=== PATIENT | female | born 1955 | race Caucasian/White ===

== ENCOUNTER 2016-10-01 14:05 | Emergency (ER) | payer BC ==
--- NOTE | 2016-10-01 16:41 | UC ---
Throat Pain/Nasal Diego HPI - HPI Summary HPI Summary: ST, ear aches, nasal congestion, hoarseness starting 2 days ago. "It never gets better on its own and I always need an antibiotic." Sees Dr. Carlos for recurrent sinusitis. Denies COPD. - History of Current Complaint Chief Complaint: UCRespiratory Stated Complaint: EAR PAIN,SORE THROAT,CONGESTION Time Seen by Provider: 10/01/16 16:11 Hx Obtained From: Patient Hx Last Menstrual Period: n/a ?: No Onset/Duration: Gradual Onset, Lasting Days Severity: Mild Cough: Nonproductive Associated Signs & Symptoms: Positive: Sinus Discomfort, Nasal Discharge - Allergies/Home Medications Allergies/Adverse Reactions: Allergies Allergy/AdvReac Type Severity Reaction Status Date / Time Azithromycin [From Zithromax] Allergy Rash, Verified 02/26/16 15:19 Swelling of the lips Sulfamethoxazole AdvReac Thrush Verified 02/26/16 15:19 w/Trimethoprim [From Bactrim] Home Medications: Home Medications Acetaminophen [Acetaminophen Extra Stren] 1,000 mg PO ONCE PRN 10/01/16 [ History Confirmed 10/01/16] Lisinopril & Hydrochlorothiazi [Zestoretic 20-12.5 mg-] 1 tab PO DAILY 10/01/16 [History Confirmed 10/01/16] PMH/Surg Hx/FS Hx/Imm Hx Endocrine History Of: Reports: Diabetes, Thyroid Disease - Hypothyroidism Denies: Hyperthyroidism, Hypothyroidism, Dyslipidemia Cardiovascular History Of: Reports: Hypertension Denies: Cardiac Disorders, Pacemaker/ICD, Myocardial Infarction, Congestive Heart Failure, Atrial Fibrillation, Deep Vein Thrombosis, Bleeding Disorders Respiratory History Of: Reports: Asthma Denies: COPD, Bronchitis, Pneumonia, Pulmonary Embolism GI/ History Of: Reports: Gastroesophageal Reflux Denies: Ulcer, Gastrointestinal Bleed, Gall Bladder Disease, Kidney Stones, Diverticulitis, Renal Disease, Urosepsis Neurological History Of: Denies: TIA, CVA, Dementia, Seizures, Migraine Psychological History Of: Reports: Anxiety Denies: Depression, Bipolar Disorder, Schizophrenia, Post Traumatic Stress Disorder Cancer History Of: Denies: Lung Cancer, Colorectal Cancer, Breast Cancer, Prostate Cancer, Cervical Cancer Other History Of: Negative For: HIV, Hepatitis B, Hepatitis C - Surgical History Surgical History: Yes Surgery Procedure, Year, and Place: Gastric Bypass (sleeve). L4 L5 Discectomy. 2 polyps on cervix - Family History Known Family History: Positive: Cardiac Disease, Diabetes - Social History Lives: With Family Alcohol Use: Occasionally Substance Use Type: None Smoking Status (MU): Former Smoker Type: Cigarettes Length of Time of Smoking/Using Tobacco: 30-40 yrs When Did the Patient Quit Smoking/Using Tobacco: 2008 - Immunization History Most Recent Influenza Vaccination: 06/2016 Review of Systems Constitutional: Chills Skin: Negative Eyes: Negative ENT: Ear Ache, Nasal Discharge Respiratory: Cough Cardiovascular: Negative Gastrointestinal: Negative Genitourinary: Negative Motor: Negative Neurovascular: Negative Musculoskeletal: Negative Neurological: Negative Psychological: Negative All Other Systems Reviewed And Are Negative: Yes Physical Exam Triage Information Reviewed: Yes Appearance: Well-Appearing, Obese Vital Signs: Initial Vital Signs Temp 97.9 F 10/01/16 15:39 Pulse 71 10/01/16 15:39 Resp 16 10/01/16 15:39 Pulse Ox 99 10/01/16 15:39 Vital Signs Reviewed: Yes Eye Exam: Normal Eyes: Positive: Conjunctiva Clear ENT: Positive: Hearing grossly normal, Pharynx normal, Nasal congestion, TMs normal - bubbles behind L TM. Negative: Tonsillar swelling, Tonsillar exudate Dental Exam: Normal Neck exam: Normal Neck: Positive: Supple, Nontender, No Lymphadenopathy Respiratory Exam: Normal Respiratory: Positive: Chest non-tender, Lungs clear, Normal breath sounds, No respiratory distress, No accessory muscle use Cardiovascular Exam: Normal Cardiovascular: Positive: RRR, No Murmur Musculoskeletal Exam: Normal Neurological Exam: Normal Psychological Exam: Normal Skin Exam: Normal Throat Pain/Nasal Course/Dx - Differential Dx/Diagnosis Provider Diagnoses: URI, likely viral. L serous otitis Discharge - Discharge Plan Condition: Stable Disposition: HOME Prescriptions: Benzonatate CAP* [Tessalon CAP*] 100 mg PO TID #30 cap Guaifenesin-Codeine [Guaiatussin AC] 5 - 10 ml PO Q6H #120 ml MDD 40mL Guaifenesin/Pseudo 600/60(NF) [Mucinex D 600/60 (NF)] 1 tab PO BID #20 tab Patient Education Materials: Upper Respiratory Infection (ED), Serous Otitis Media (ED) Referrals: Phong Carpio MD [Primary Care Provider] - Additional Instructions: When you were here in August, you'd had symptoms for 2-3 weeks. This is a very big difference from 3 days, as it can mean the difference between a virus that will resolve on its own and a secondary bacterial infection that needs further care. We used to think antibiotics were necessary to treat bronchitis and sinusitis, but studies have shown that respiratory viruses cause the disease in the vast majority of cases. Like head colds, most cases of bronchitis get better without antibiotics. We may prescribe antibiotics if we believe bacteria are damaging your airways, or if there's high risk the illness will worsen into pneumonia ( such as for individuals with emphysema or other lung disease). Increase your fluid intake. A cool mist humidifier may make your lungs more comfortable. An expectorant (cough medicine that loosens phlegm) can help. Recovery from respiratory viruses can be somewhat slow, but you should not have any significant worsening or new fevers. As long as you can breathe easily and you continue to have steady improvement, it is not important how many days it takes you to get better. Call or return if you develop increasing fever, shortness of breath, chest pain , bloody sputum, or otherwise worsen. If you have not improved at all after several days, contact your primary care physician or return here.
== END 2016-10-01 16:38 | disposition home or self-care (01) ==
LOC: UCCORT 14:05
DX: J06.9 Acute upper respiratory infection, unspecified (principal); H65.92 Unspecified nonsuppurative otitis media, left ear; I10 Essential (primary) hypertension; E66.9 Obesity, unspecified; Z98.84 Bariatric surgery status; Z87.891 Personal history of nicotine dependence; Z88.1 Allergy status to other antibiotic agents
CPT/HCPCS: 99212; G0463

== ENCOUNTER 2017-07-22 15:59 | Emergency (ER) | payer BC ==
[2017-07-22 16:31] VITALS: BP 139/76
--- NOTE | 2017-07-22 17:14 | UC ---
Respiratory Complaint HPI - HPI Summary HPI Summary: 62 y/o female presents to the urgent care c/o head congestion, sinus pressure and B/L ear pressure for the past 7 weeks. Pt also reports mild wheezing , SOB with exertion for the past week. Nasal discharge is green w/ mild DOMINGO. Pt reports She saw her PCP Dr Carpio 2 weeks ago and Rx Doxycycline for ear infection. She finished ABX. Chest X-ray was done on 07/13/2017, but she doesn' t know the results. Pt denies fever, chest pain, abdominal pain, N/V/D. Dr Galvez is her ENT. - History of Current Complaint Chief Complaint: UCRespiratory Stated Complaint: HEADACHE,EARS,BREATHING,JUNIOR Time Seen by Provider: 07/22/17 16:22 Hx Obtained From: Patient Hx Last Menstrual Period: n/a ?: No Onset/Duration: Gradual Onset, Lasting Weeks - 7 weeks, Still Present Timing: Intermittent Episodes Severity Initially: Mild Severity Currently: Moderate Pain Intensity: 5 - sinus pain Pain Scale Used: 0-10 Numeric Character: Cough: Nonproductive Aggravating Factors: Deep Breaths Alleviating Factors: Bronchodilator Associated Signs And Symptoms: Positive: Dyspnea, Wheezing, Nasal Congestion, Sinus Discomfort. Negative: Fever, Chills - Risk Factors Pulmonary Embolism Risk Factors: Negative Cardiac Risk Factors: Negative Pseudomonas Risk Factors: Negative Tuberculosis Risk Factors: Negative - Allergies/Home Medications Allergies/Adverse Reactions: Allergies Allergy/AdvReac Type Severity Reaction Status Date / Time Azithromycin [From Zithromax] Allergy Rash, Verified 07/22/17 16:21 Swelling of the lips Sulfamethoxazole AdvReac Thrush Verified 07/22/17 16:21 w/Trimethoprim [From Bactrim] Home Medications: Home Medications Divalproex Sprinkle CAP* [Depakote Sprinkle CAP*] 1 cap DAILY 07/22/17 [History Confirmed 07/22/17] Metformin SUSP (NF)* [Riomet SUSP (NF)*] 1 tab DAILY 07/22/17 [History Confirmed 07/22/17] Rosuvastatin Calcium [Crestor] 1 tab DAILY 07/22/17 [History Confirmed 07/22/17] PMH/Surg Hx/FS Hx/Imm Hx Previously Healthy: Yes Endocrine History: Diabetes, Dyslipidemia Cardiovascular History: Hypertension Other History Of: Negative For: HIV, Hepatitis B, Hepatitis C - Surgical History Surgical History: Yes Surgery Procedure, Year, and Place: Gastric Bypass (sleeve). L4 L5 Discectomy. 2 polyps on cervix - Family History Known Family History: Positive: Cardiac Disease, Diabetes - Social History Occupation: Unemployed Lives: With Family Alcohol Use: Occasionally Substance Use Type: None Smoking Status (MU): Former Smoker Type: Cigarettes Length of Time of Smoking/Using Tobacco: 30-40 yrs When Did the Patient Quit Smoking/Using Tobacco: 2008 - Immunization History Most Recent Influenza Vaccination: none Review of Systems Constitutional: Negative Skin: Negative Eyes: Negative ENT: Ear Ache - B/L, Nasal Discharge - green drischarge, Sinus Congestion, Sinus Pain/Tenderness Respiratory: Shortness Of Breath, Other - wheezing Cardiovascular: Negative Gastrointestinal: Negative Genitourinary: Negative Motor: Negative Neurovascular: Negative Musculoskeletal: Negative Neurological: Negative Psychological: Negative Is Patient Immunocompromised?: No All Other Systems Reviewed And Are Negative: Yes Physical Exam Triage Information Reviewed: Yes Vital Signs: Initial Vital Signs Temp 98.1 F 07/22/17 16:23 Pulse 83 07/22/17 16:23 Resp 16 07/22/17 16:23 BP 139/76 07/22/17 16:23 Pulse Ox 96 07/22/17 16:23 - Additional Comments Vitals: reviewed General: Well developed, well-nourished obese female patient sitting in the examining table w/o any apparent distress Head and face: Normocephalic and atraumatic, Positive tenderness over the frontal and maxillary sinuses.. Eyes: PERRLA, EOMI x 2. Normal conjunctiva. No eye discharge. ENT: B/L maxillary and frontal sinuses tender to percussion and palpation. Rt exteranl ear canal impacted with cerumen unable to visualize TM. LF external ear canal clear, LF TM WNL Nose: with yellowish discharge and erythematous mucosa. Pharynx with erythema, no exudate. Neck: Supple, no JVD, no carotid bruits and no lymphadenopathy. Lungs: clear, no rales, no rhonchi, no wheezes. CVS: RRR, S1 and S2 present no murmurs or gallops appreciated. Abdomen: soft nontender with positive bowel sounds. Extremities: no edema noted. Neuro: WNL. Skin: warm and dry UC Diagnostic Evaluation - Laboratory O2 Sat by Pulse Oximetry: 96 Respiratory Course/Dx - Course Course Of Treatment: 62 y/o female presents to the urgent care c/o head congestion, sinus pressure and B/L ear pressure for the past 7 weeks. Pt also reports mild wheezing , SOB with exertion for the past week. Nasal discharge is green w/ mild DOMINGO. Pt reports She saw her PCP Dr Carpio 2 weeks ago and Rx Doxycycline for ear infection. She finished ABX. Chest X-ray was done on 07/13/2017, but she doesn't know the results. Pt denies fever, chest pain, abdominal pain, N/V/D. Dr Galvez is her ENT. JHx obtained. Pt with sinusitis and RT external ER canal impacted with cerumen on examiantion. Rt ear canal irrigation ordered. Pt tolerated well procedure. Mild Cerumen still present, Pt Rx Debrox. Pt with Chronic sinusitis. Pt Rx Augmentin PO and Medrol dose jewell, F/ u with Dr Galvez if not improvement of symptoms. Pt feeling Wheezing at home. Advised to do Nebulizing albuterol treatment at home. Pt explained D/C instructions. Pt understood and agreed with plan of care. left the clinic ambulating. Pt advised to rest, eat well and avoid strenuous exercise. If symptoms do not improve or worsen advised to return to the urgent care or f/u with her PCP for further evaluation and treatment. Pt understood and agreed - Differential Dx/Diagnosis Differential Diagnosis/HQI/PQRI: Asthma, Bronchitis, Laryngitis, Sinusitis, Other - URI, cerumen impaction, Otitis media, otitis externa Provider Diagnoses: 1- Chronic sinusitis. 2-RT external ear canal impacted with cerumen. 3-Wheezing Discharge - Discharge Plan Condition: Stable Disposition: HOME Prescriptions: Amoxicillin/Clavulanate TAB* [Augmentin TAB 875*] 875 mg PO BID #20 tab Carbamide Peroxide 6.5% OTIC* [DEBROX 6.5% Otic*] 5 drop RIGHT EAR BID #1 bottle Methylprednisolone [Medrol Dosepak 4 MG*] 4 mg PO .SEE JEWELL INSTRUCTION #1 jewell Patient Education Materials: Sinusitis (ED), Cerumen Impaction (ED), Wheezing ( ED) Referrals: Fer Galvez MD [Medical Doctor] - 1 Week Phong Carpio MD [Primary Care Provider] - 1 Week Additional Instructions: 1- Please increase fluid intake and rest. take full course of antibiotic to avoid resistance 2-Use Flonase as directed to help drain fluid. Also buy saline drops to clear sinuses 3-Take Prednisone PO to alleviates wheezing and continue using the albuterol inhaler 4-Return to the clinic or PCP if symptoms do not improve for further management and treatment. Please f/u with your ENT in 1 week if not improvement or worsening of symptoms 5- Apply otic drops on RT ear as directed to soften cerumen
== END 2017-07-22 17:37 | disposition home or self-care (01) ==
LOC: UCCORT 15:59
DX: J32.9 Chronic sinusitis, unspecified (principal); H61.21 Impacted cerumen, right ear; R06.2 Wheezing; Z88.1 Allergy status to other antibiotic agents; Z88.2 Allergy status to sulfonamides; E11.9 Type 2 diabetes mellitus without complications; Z79.84 Long term (current) use of oral hypoglycemic drugs; E78.5 Hyperlipidemia, unspecified; I10 Essential (primary) hypertension; Z98.84 Bariatric surgery status; Z87.891 Personal history of nicotine dependence
CPT/HCPCS: 99213; G0463

== ENCOUNTER 2018-06-08 15:00 | Emergency (ER) | payer BC ==
[2018-06-08 16:02] VITALS: BP 133/63
--- NOTE | 2018-06-08 16:24 | UC ---
Respiratory Complaint HPI - HPI Summary HPI Summary: 3 days of sore neck and dysphagia, malaise, with increased use of albuterol, hx of asthma. Concerned about bronchitis as her granddaughter had similar sx and was dx'd with bronchitis. Diabetic, blood sugars vary, but not trending up. No fever. - History of Current Complaint Chief Complaint: UCGeneralIllness Stated Complaint: NECK/JOINT/EAR PAIN Time Seen by Provider: 06/08/18 16:13 Hx Obtained From: Patient Hx Last Menstrual Period: n/a Onset/Duration: Gradual Onset Timing: Constant Severity Initially: Moderate Severity Currently: Moderate Pain Intensity: 8 Alleviating Factors: Bronchodilator Associated Signs And Symptoms: Positive: URI - Risk Factors Pulmonary Embolism Risk Factors: Negative Cardiac Risk Factors: Diabetes Pseudomonas Risk Factors: Negative Tuberculosis Risk Factors: Negative - Allergies/Home Medications Allergies/Adverse Reactions: Allergies Allergy/AdvReac Type Severity Reaction Status Date / Time azithromycin Allergy Swelling Verified 06/08/18 15:57 Of Face,Lips,& Throat sulfamethoxazole Allergy See Comment Verified 06/08/18 15:57 [From Bactrim] trimethoprim [From Bactrim] Allergy See Comment Verified 06/08/18 15:57 Home Medications: Home Medications Diabetic Shot DAILY 06/08/18 [History] Febuxostat [Uloric] 40 mg PO DAILY 06/08/18 [History Confirmed 06/08/18] Fexofenadine (NF) [Sammi 180 (NF)] 180 mg PO DAILY 06/08/18 [History Confirmed 06/08/18] Fluticasone NASAL SPRAY 50MCG* [Flonase NASAL SPRAY 50MCG*] 2 spray BOTH NARES DAILY 06/08/18 [History Confirmed 06/08/18] Turmeric 400 mg PO DAILY 06/08/18 [History Confirmed 06/08/18] PMH/Surg Hx/FS Hx/Imm Hx Endocrine History: Diabetes, Hypothyroidism Cardiovascular History: Hypertension Respiratory History: Asthma Other History Of: Negative For: HIV, Hepatitis B, Hepatitis C - Surgical History Surgical History: Yes Surgery Procedure, Year, and Place: Gastric Bypass (sleeve). L4 L5 Discectomy. 2 polyps on cervix - Family History Known Family History: Positive: Cardiac Disease, Diabetes - Social History Occupation: Retired Alcohol Use: Occasionally Substance Use Type: None Smoking Status (MU): Former Smoker Type: Cigarettes Length of Time of Smoking/Using Tobacco: 30-40 yrs When Did the Patient Quit Smoking/Using Tobacco: 2008 - Immunization History Most Recent Influenza Vaccination: none Review of Systems Constitutional: Fatigue Skin: Negative Eyes: Negative ENT: Sore Throat, Ear Ache Respiratory: Negative Cardiovascular: Negative Gastrointestinal: Negative Genitourinary: Negative Motor: Negative Neurovascular: Negative Musculoskeletal: Myalgia - very sore neck Neurological: Negative Psychological: Negative Is Patient Immunocompromised?: No All Other Systems Reviewed And Are Negative: Yes Physical Exam Triage Information Reviewed: Yes Appearance: Pain Distress - mild to moderate, Obese Vital Signs: Initial Vital Signs Temp 97.7 F 06/08/18 15:57 Pulse 77 06/08/18 15:57 Resp 18 06/08/18 15:57 BP 133/63 06/08/18 15:57 Pulse Ox 97 06/08/18 15:57 ENT: Positive: Pharynx normal, TM dull - bilateral TM scarring, worse on the left than the right. Right ear canal narrow. NO erythema. Neck: Positive: Supple, No Lymphadenopathy, Tenderness @ - musculature tender to touch. Respiratory: Positive: Lungs clear, Normal breath sounds Cardiovascular: Positive: RRR, No Murmur Neurological: Positive: Alert, Muscle Tone Normal Psychological Exam: Normal Skin Exam: Normal UC Diagnostic Evaluation - Laboratory O2 Sat by Pulse Oximetry: 97 Respiratory Course/Dx - Course Course Of Treatment: symptomatic treatment of viral illness. - Differential Dx/Diagnosis Differential Diagnosis/HQI/PQRI: Asthma, Bronchitis, Laryngitis, Lower Resp Infection, Sinusitis Provider Diagnoses: viral illness Discharge - Sign-Out/Discharge Documenting (check all that apply): Patient Departure All imaging exams completed and their final reports reviewed: No Studies - Discharge Plan Condition: Stable Disposition: HOME Patient Education Materials: Pharyngitis (ED) Referrals: Phong Carpio MD [Primary Care Provider] - Additional Instructions: The muscle aches and soreness in the throat are consistent with viral illness, and there are no findings to suggest a bacterial cause. Continue ibuprofen for relief of pain, but also use warm packs on the neck. I would anticipate improvement in the next several days; follow up if you develop fever or cough, shortness of breath. - Billing Disposition and Condition Condition: STABLE Disposition: Home
== END 2018-06-08 16:40 | disposition home or self-care (01) ==
LOC: UCCORT 15:00
DX: B34.9 Viral infection, unspecified (principal); Z88.1 Allergy status to other antibiotic agents; Z11.9 Encounter for screening for infectious and parasitic diseases, unspecified; Z79.84 Long term (current) use of oral hypoglycemic drugs; I10 Essential (primary) hypertension; Z87.891 Personal history of nicotine dependence
CPT/HCPCS: 99212; G0463

== ENCOUNTER 2018-07-07 15:31 | Emergency (ER) | payer BC ==
[2018-07-07 17:20] VITALS: BP 141/74
--- NOTE | 2018-07-07 17:55 | ED ---
Respiratory - HPI Summary HPI Summary: 63 yo WF ex smoker p/w B/L watery eyes, redness cough and pleuritic CP x 6 weeks on and off. Started with URI sx but progressively worsened - History of Current Complaint Chief Complaint: UCGeneralIllness Stated Complaint: EYE, EAR COMPLAINT, COUGH, FATIGUE Time Seen by Provider: 07/07/18 17:29 Hx Obtained From: Patient Initial Severity: Moderate Current Severity: Moderate Pain Intensity: 5 Character: Cough (Nonproductive) Sputum Amount: Moderate Sputum Color: Yellow Aggravating Factor(s): Allergens - Allergy/Home Medications Allergies/Adverse Reactions: Allergies Allergy/AdvReac Type Severity Reaction Status Date / Time azithromycin Allergy Swelling Verified 07/07/18 17:08 Of Face,Lips,& Throat sulfamethoxazole Allergy See Comment Verified 07/07/18 17:08 [From Bactrim] trimethoprim [From Bactrim] Allergy See Comment Verified 07/07/18 17:08 PMH/Surg Hx/FS Hx/Imm Hx Previously Healthy: No - COPD Endocrine/Hematology History: Reports: Hx Diabetes, Hx Thyroid Disease - Hypothyroidism Cardiovascular History: Reports: Hx Hypertension Denies: Hx Congestive Heart Failure, Hx Deep Vein Thrombosis, Hx Myocardial Infarction, Hx Pacemaker/ICD Respiratory History: Reports: Hx Asthma Denies: Hx Chronic Obstructive Pulmonary Disease (COPD), Hx Lung Cancer, Hx Pneumonia, Hx Pulmonary Embolism GI History: Denies: Hx Gall Bladder Disease, Hx Gastrointestinal Bleed, Hx Ulcer, Hx Urosepsis History: Denies: Hx Kidney Stones, Hx Renal Disease Neurological History: Denies: Hx Dementia, Hx Migraine, Hx Seizures, Hx Transient Ischemic Attacks (TIA) Psychiatric History: Reports: Hx Anxiety Denies: Hx Depression, Hx Schizophrenia, Hx Bipolar Disorder - Surgical History Surgery Procedure, Year, and Place: Gastric Bypass (sleeve). L4 L5 Discectomy. 2 polyps on cervix Infectious Disease History: No Infectious Disease History: Reports: Hx Shingles Denies: Traveled Outside the [place] in Last 30 Days - Family History Known Family History: Positive: Cardiac Disease, Diabetes - Social History Alcohol Use: Occasionally Substance Use Type: Reports: None Smoking Status (MU): Former Smoker Type: Cigarettes Length of Time of Smoking/Using Tobacco: 30-40 yrs Review of Systems Constitutional: Negative Positive: Fever Positive: Drainage, Erythema ENT: Negative Cardiovascular: Negative Positive: Shortness Of Breath, Cough Gastrointestinal: Negative Genitourinary: Negative Musculoskeletal: Negative Skin: Negative All Other Systems Reviewed And Are Negative: Yes Physical Exam - Summary Physical Exam Summary: Vital Signs Reviewed: Yes Appearance: Positive: Well-Appearing Skin: Positive: Warm Head/Face: Positive: Normal Head/Face Inspection Eyes: Positive: B/L clear drainage with conjunctivial erythema ENT: Positive: Normal ENT inspection Neck: Positive: Supple Respiratory/Lung Sounds: Positive: FAINT Exp wheeze B/L Cardiovascular: Positive: Normal, RRR, S1, S2 Abdomen Description: Positive: Nontender, Soft Musculoskeletal: Positive: Normal Neurological: Positive: CN Intact II-XII Psychiatric: Positive: Normal Triage Information Reviewed: Yes Vital Signs On Initial Exam: Initial Vitals Temp Pulse Resp BP Pulse Ox 36.6 C 76 16 141/74 98 07/07/18 17:14 07/07/18 17:14 07/07/18 17:14 07/07/18 17:14 07/07/18 17:14 Vital Signs Reviewed: Yes Appearance: Positive: Obese Diagnostics - Vital Signs Vital Signs Temp Pulse Resp BP Pulse Ox 07/07/18 17:14 36.6 C 76 16 141/74 98 - Laboratory Lab Statement: Any lab studies that have been ordered have been reviewed, and results considered in the medical decision making process. Disposition - Course Assessment/Plan: cough with pleuritic CP-. CXR- neg for PNA, will tx for bronchitis given pt's sx. Conjunctivis- Cipro opthalmic - Diagnoses Provider Diagnoses: Bronchitis, Conjunctivitis Discharge - Sign-Out/Discharge Documenting (check all that apply): Patient Departure All imaging exams completed and their final reports reviewed: Yes - Discharge Plan Condition: Stable Disposition: HOME Prescriptions: Ciprofloxacin 0.3% OPTH.BELKYS* [Cipro 0.3% Opth*] 2 drop BOTH EYES Q4H 7 Days #1 btl DOXYcycline CAP(*) [DOXYcycline 100MG CAP(*)] 100 mg PO BID 10 Days #20 cap Patient Education Materials: Acute Bronchitis (ED), Conjunctivitis (ED) Referrals: Phong Carpio MD [Primary Care Provider] - Additional Instructions: follow up with PCP in 2-3 days - Billing Disposition and Condition Condition: STABLE Disposition: Home
--- NOTE | 2018-07-08 08:31 | RAD ---
INDICATION: Wheezing COMPARISON: Most recent comparison chest x-rays dated July 14, 2017 TECHNIQUE: PA and lateral views of the chest were obtained. FINDINGS: The heart and mediastinum are normal in size and contour. The lungs are grossly clear. There is no evidence of large pleural effusion. Visualized bones are normal for the patient's age. There is no radiographic evidence of free air beneath the diaphragm IMPRESSION: No radiographic evidence of acute cardiopulmonary disease. [id number]
== END 2018-07-07 18:55 | disposition home or self-care (01) ==
LOC: UCCORT 15:31
DX: H10.9 Unspecified conjunctivitis (principal); J40 Bronchitis, not specified as acute or chronic; E11.9 Type 2 diabetes mellitus without complications; I10 Essential (primary) hypertension; Z88.1 Allergy status to other antibiotic agents; Z88.2 Allergy status to sulfonamides; Z87.891 Personal history of nicotine dependence
CPT/HCPCS: 71046; 99212; G0463

== ENCOUNTER 2019-03-26 15:06 | Emergency (ER) | payer BC ==
--- NOTE | 2019-03-26 15:40 | UC ---
Throat Pain/Nasal [place] HPI - HPI Summary HPI Summary: 64-year-old female who's had cold symptoms and sinus congestion over the past 2 months worse over the past few days. She has asthma and has been using her albuterol inhaler frequently over the past couple of days. She's had some productive yellowish green sputum at times. She's also had color nasal coryza. She denies any fever or chills. She quit smoking approximately 11 years ago. - History of Current Complaint Stated Complaint: SINUSES Time Seen by Provider: 03/26/19 15:32 Hx Obtained From: Patient Hx Last Menstrual Period: n/a ?: No Onset/Duration: Gradual Onset Severity: Mild Cough: Productive - Occasional productive cough of yellowish-green sputum. Associated Signs & Symptoms: Positive: Wheezing - Patient has been using her albuterol nebulizer at home with some relief of wheezing. Related History: Seasonal Allergies - Allergies/Home Medications Allergies/Adverse Reactions: Allergies Allergy/AdvReac Type Severity Reaction Status Date / Time azithromycin Allergy Swelling Verified 03/26/19 15:25 Of Face,Lips,& Throat ibuprofen Allergy Renal Verified 03/26/19 15:25 function changes sulfamethoxazole Allergy See Comment Verified 03/26/19 15:25 [From Bactrim] trimethoprim [From Bactrim] Allergy See Comment Verified 03/26/19 15:25 Home Medications: Home Medications Semaglutide [Ozempic] 0.5 ml SQ WEEKLY 03/26/19 [History Confirmed 03/26/19] celeCOXIB CAP* [CeleBREX CAP*] 200 mg PO DAILY 03/26/19 [History Confirmed 03/26] guaiFENesin ER TAB [Mucinex*] 600 mg PO BID PRN 03/26/19 [History Confirmed ] metFORMIN* [Glucophage 500 MG TAB *] 500 mg PO BID 03/26/19 [History Confirmed 03/26/19] PMH/Surg Hx/FS Hx/Imm Hx Previously Healthy: Yes Endocrine History: Thyroid Disease Cardiovascular History: Hypertension Respiratory History: Asthma Other History Of: Negative For: HIV, Hepatitis B, Hepatitis C - Surgical History Surgical History: Yes Surgery Procedure, Year, and Place: Gastric Bypass (sleeve). L4 L5 Discectomy. 2 polyps on cervix; b/l cataracts 08/2018 - Family History Known Family History: Positive: Cardiac Disease, Diabetes - Social History Alcohol Use: Occasionally Substance Use Type: None Smoking Status (MU): Former Smoker Type: Cigarettes Length of Time of Smoking/Using Tobacco: 30-40 yrs When Did the Patient Quit Smoking/Using Tobacco: 2008 - Immunization History Most Recent Influenza Vaccination: none Vaccination Up to Date: Yes Review of Systems All Other Systems Reviewed And Are Negative: Yes - [place] carriers out a ENT: Positive: Nasal Discharge, Sinus Congestion, Sinus Pain/Tenderness Respiratory: Positive: Cough - Productive cough Is Patient Immunocompromised?: No Physical Exam Triage Information Reviewed: Yes Appearance: Well-Appearing, No Pain Distress, Well-Nourished Vital Signs Reviewed: Yes Eyes: Positive: Conjunctiva Clear ENT: Positive: Pharynx normal, Nasal drainage, TMs normal, Sinus tenderness - Bilateral maxillary sinus tenderness on palpation., Uvula midline Neck: Positive: Supple, Nontender, No Lymphadenopathy Respiratory: Positive: Lungs clear, No respiratory distress, No accessory muscle use, Rhonchi - mild rhonchi in the lower bases. Cardiovascular: Positive: RRR, No Murmur, Pulses Normal, Brisk Capillary Refill Musculoskeletal Exam: Normal Neurological Exam: Normal Psychological Exam: Normal Skin Exam: Normal Throat Pain/Nasal Course/Dx - Course Course Of Treatment: Chest x-ray:FINDINGS: The lungs are clear. There is no pleural effusion. The cardiomediastinal silhouette is within normal limits. The upper abdominal contents are normal. Osseous structures are unremarkable. IMPRESSION: No acute cardiopulmonary process. I'm going treat the patient with doxycycline, she is to continue her albuterol treatments every 4 hours at home and 5 days course of prednisone follow-up with her primary care provider if no improvement in 3 or 4 days. - Differential Dx/Diagnosis Provider Diagnosis: Bronchitis, Sinusitis Discharge - Sign-Out/Discharge Documenting (check all that apply): Patient Departure All imaging exams completed and their final reports reviewed: Yes - Discharge Plan Condition: Fair Disposition: HOME Prescriptions: DOXYcycline CAP(*) [DOXYcycline 100MG CAP(*)] 100 mg PO BID 10 Days #20 cap predniSONE [Prednisone 20 MG TAB] 40 mg PO DAILY 5 Days #10 tablet Patient Education Materials: Sinusitis (ED) Referrals: Phong Carpio MD [Primary Care Provider] - Additional Instructions: Increase fluids, no antacids, dairy products or multivitamins including your magnesium and calcium pills 2 hours before you take the doxycycline and 2 hours after you take the doxycycline however you want to be sure and take it with food. Increase fluids, continue your albuterol nebulizer at home every 4 hours as needed. Follow-up with your primary care provider in 3 or 4 days if no improvement. Take the prednisone with food. - Billing Disposition and Condition Condition: FAIR Disposition: Home
[2019-03-26 15:43] VITALS: BP 120/71
== END 2019-03-26 16:35 | disposition home or self-care (01) ==
LOC: UCCORT 15:06
DX: J40 Bronchitis, not specified as acute or chronic (principal); J32.9 Chronic sinusitis, unspecified; I10 Essential (primary) hypertension; Z87.891 Personal history of nicotine dependence
CPT/HCPCS: 71046; 99212; G0463